=== PATIENT | female | born 1965 | race Caucasian/White ===

== ENCOUNTER 2018-08-28 14:56 | Emergency (ER) | payer SELFPAY, OTHER | END 2018-08-28 16:50 | disposition home or self-care (01) | LOC: JERFT 14:56 ==

== ENCOUNTER 2018-08-29 13:53 | Emergency (ER) | payer SELFPAY ==
[2018-08-29 14:47] VITALS: BP 137/74; PULSE 94; TEMP 98.8; BMI 25.7
--- NOTE | 2018-08-29 14:53 | PDOC ---
Rapid Medical Evaluation Chief Complaint: Sore Throat Time Seen by Provider: 08/29/18 14:43 Medical Evaluation: Allergies Allergy/AdvReac Type Severity Reaction Status Date / Time No Known Allergies Allergy Verified 08/28/18 15:00 08/29/18 14:46 I have performed a brief in-person evaluation of this patient. The patient presents with a chief complaint of: revisit, seen yesterday for sorethroat given pen vk im States not feeling better. Patient afebrile today Pertinent physical exam findings: gargled speech HEENT: pain with opening mouth, unable to assess pharynx even and unlabored breathing I have ordered the following: discussed with CESAR Leary who would like to reevaluate The patient will proceed to the ED for further evaluation.
[2018-08-29] MEDS ORDERED: SODIUM CHLORIDE 0.9% 500 ML INFUS.BAG IV ONE (15:41)
--- NOTE | 2018-08-29 15:41 | PDOC ---
History of Present Illness - General Chief Complaint: Sore Throat Stated Complaint: DIZZINESS Time Seen by Provider: 08/29/18 14:43 History Source: Patient, Family Exam Limitations: No Limitations - History of Present Illness Initial Comments: 08/29/18 16:09 Patient return to emergency department after being seen by myself yesterday and treated for strep pharyngeal infection. Given 1 dose of Bicillin LA 1.2 million units and Tylenol. Patient states returned home but was continued to be unable to swallow liquids and has progressive worsening, swelling, and pain to throat. Timing/Duration: getting worse Severity: moderate, severe Associated Symptoms: reports: fever/chills, loss of appetite, malaise, weakness Past History - Past Medical History Allergies/Adverse Reactions: Allergies Allergy/AdvReac Type Severity Reaction Status Date / Time No Known Allergies Allergy Verified 08/28/18 15:00 Home Medications: Ambulatory Orders Acetaminophen [Tylenol .Extra-Strength -] 1,000 mg PO Q12H 08/22/14 Aspirin [ASA -] 81 mg PO DAILY 08/22/14 Calcium Carbonate/Vitamin D3 [Calcium 500 + Vit D 200 Caplet] 1 each PO BID Clopidogrel Bisulfate [Plavix -] 75 mg PO DAILY 08/22/14 Docusate Sodium [Colace -] 100 mg PO TID 08/22/14 Hydrochlorothiazide [Hctz -] 25 mg PO DAILY 08/22/14 Meclizine HCl [Antivert -] 25 mg PO TID #21 tablet 08/22/14 Multivitamins [Multivit ([facility] Formulary)] 1 tab PO DAILY 08/22/14 [place]-3 Acid Ethyl Esters [Lovaza -] 2,000 mg PO BID 08/22/14 Omeprazole [Prilosec] 20 mg PO DAILY 08/22/14 Simvastatin [Zocor] 80 mg PO HS 08/22/14 metFORMIN HCL [Glucophage -] 500 mg PO BID 08/22/14 Acetaminophen Oral Solution [Tylenol 160mg/5mL Oral Solution -] 160 mg PO Q6H # 120 ml 08/29/18 Clindamycin [Cleocin -] 150 mg PO Q8H #21 capsule 08/29/18 Nystatin Oral Suspension - [Nystatin Oral Susp 207369 Units/5 ML -] 500,000 units PO Q6H 7 Days #100 cup 08/29/18 CVA: Yes COPD: No Diabetes: Yes HTN: Yes Hypercholesterolemia: Yes - Suicide/Smoking/Psychosocial Hx Smoking History: Never smoked Have you smoked in the past 12 months: No Information on smoking cessation initiated: No Hx Alcohol Use: No Drug/Substance Use Hx: No Substance Use Type: None Review of Systems - Review of Systems Able to Perform ROS?: Yes Is the patient limited Polish proficient: Yes Constitutional: Yes: Symptoms Reported, See HPI, Chills, Fever, Loss of Appetite (able to swallow fluids), Malaise HEENTM: Yes: Symptoms Reported, See HPI, Throat Pain, Throat Swelling, Difficulty Swallowing (patient unable to swallow secretions,) Respiratory: Yes: See HPI. No: Symptoms reported, Cough ABD/GI: Yes: Symptoms Reported Musculoskeletal: Yes: Symptoms Reported, See HPI, Muscle Weakness Integumentary: Yes: See HPI. No: Symptoms Reported, Bruising, Erythema Neurological: Yes: Symptoms reported, See HPI, Headache All Other Systems: Reviewed and Negative *Physical Exam - Vital Signs Last Vital Signs Temp Pulse Resp BP Pulse Ox 98.8 F 94 H 20 137/74 99 08/29/18 14:43 08/29/18 14:43 08/29/18 14:43 08/29/18 14:43 08/29/18 14:43 - Physical Exam General Appearance: Yes: Nourished, Appropriately Dressed, Apparent Distress, Moderate Distress, Severe Distress HEENT: positive: LUIZ, Normal ENT Inspection, Normal Voice, TMs Normal, Muffled/ Hoarse voice (hot potato voice), Pharyngeal Erythema (with deviated uvula towards the right, large peritonsillar abscess on the left side. patient has significant thrush coating surface of tongue). negative: Pharynx Normal Neck: positive: Tender, Supple, Lymphadenopathy (R), Lymphadenopathy (L) Respiratory/Chest: positive: Lungs Clear, Normal Breath Sounds Gastrointestinal/Abdominal: positive: Normal Bowel Sounds, Soft. negative: Tender Musculoskeletal: positive: Normal Inspection Extremity: positive: Normal Capillary Refill, Normal Inspection, Tender Integumentary: positive: Warm, Pale Neurologic: positive: clinical laboratory assistant II-XII NML intact, Fully Oriented, Alert, Normal Mood/ Affect, Normal Response, Motor Strength 5/5 Moderate Sedation - Procedure Monitoring Vital Signs: Procedure Monitoring Vital Signs Temperature 98.8 F 08/29/18 14:43 Pulse Rate 94 H 08/29/18 14:43 Respiratory Rate 20 08/29/18 14:43 Blood Pressure 137/74 08/29/18 14:43 O2 Sat by Pulse Oximetry (%) 99 08/29/18 14:43 ED Treatment Course - LABORATORY CBC & Chemistry Diagram: 08/29/18 16:00 08/29/18 16:00 Medical Decision Making - Medical Decision Making 08/29/18 18:[address] of neck, and reviewed with Dr. Salgado, radiologist. He reveals there is no significant abscess noted/peritonsillar abscess however visualizes significant swelling to paranasal pharyngeal spaces assisted with a significant streptococcal infection. Patient feels much improved after 1 L IV fluid, IV Tylenol, 10 mg of Decadron. We will treat thrush with nystatin swish and swallow, and given first dose of IV clindamycin 600 mg for continued treatment for streptococcal infection and sent prescription for clindamycin tablets 150 every 67 days. Encouraged family and patient to follow-up with PMD tomorrow. *DC/Admit/Observation/Transfer Diagnosis at time of Disposition: Thrush, oral Pharyngitis Qualifiers: Pharyngitis/tonsillitis etiology: streptococcus Qualified Code(s): J02.0 - Streptococcal pharyngitis - Discharge Dispostion Disposition: HOME Condition at time of disposition: Stable Decision to Admit order: No - Prescriptions Prescriptions: Acetaminophen Oral Solution [Tylenol 160mg/5mL Oral Solution -] 160 mg PO Q6H # 120 ml Clindamycin [Cleocin -] 150 mg PO Q8H #21 capsule Nystatin Oral Suspension - [Nystatin Oral Susp [id number] Units/5 ML -] 500,000 units PO Q6H 7 Days #100 cup - Referrals Referrals: Myrna Leach MD [Primary Care Provider] - - Patient Instructions Printed Discharge Instructions: DI for Strep Throat, DI for Thrush Additional Instructions: Rest, drink lots of fluids: Teas, water, soups Eat cold things: Ice cream, ice pops, ice chips Saltwater gargles Steamy showers/seem to face break up mucus Avoid contact with others until fevers and pain resolved Lots of handwashing and good hygiene, this is contagious You have been treated with 600 mg of clindamycin IV, 1 g of Tylenol via IV, 10 mg of Decadron the IV Clindamyosin tablets will continue 150 mg every 6 hours for the following week Tylenol or Motrin for fever and pain Followup with private physician in one to 2 days Return to emergency department for worsened symptoms, fevers, dehydration - Post Discharge Activity Forms/Work/School Notes: Back to Work
[2018-08-29] MEDS ORDERED: DEXAMETHASONE SOD PHOSPHATE 10 MG/1 ML VIAL IVPUSH ONE (15:42)
[2018-08-29] MEDS ORDERED: ACETAMINOPHEN 1000 MG/100 ML VIAL (NON FORMULARY) IVPB ONE (15:43)
[2018-08-29] MEDS ORDERED: DEXAMETHASONE SOD PHOSPHATE 10 MG/1 ML VIAL ONE (15:46)
[2018-08-29] MEDS ORDERED: ACETAMINOPHEN INJECTION 100 ML IVPB ONE (15:49)
[2018-08-29 16:15] LABS: BASO % 0.3 % (0-2.0); EOS % 0.5 % (0-4.5); HEMATOCRIT 42.8 % (32.4-45.2); HEMOGLOBIN 14.4 GM/dL (10.7-15.3); MCH 29.3 pg (25.7-33.7); MCHC 33.7 g/dl (32.0-36.0); MEAN CELL VOLUME 86.8 fl (80-96); MEAN PLT VOLUME 10.4 fl (7.5-11.1); NEUT % 82.2 % (42.8-82.8); PLATELET COUNT 150 K/MM3 (134-434); RBC 4.93 M/mm3 (3.60-5.2); RDW 15.7 % (11.6-15.6)
[2018-08-29 16:58] LABS: ALBUMIN 3.6 g/dl (3.4-5.0); ALK PHOS 126 U/L (45-117); ANION GAP 11 MMOL/L (8-16); BILIRUBIN,TOTAL 0.6 mg/dL (0.2-1); BLOOD UREA NITROGEN 29 mg/dL (7-18); CALCIUM 9.1 mg/dL (8.5-10.1); CHLORIDE 99 mmol/L (98-107); CO2 26 mmol/L (21-32); CREATININE 0.6 mg/dL (0.55-1.3); GLUCOSE,RANDOM 274 mg/dL (74-106); POTASSIUM 3.9 mmol/L (3.5-5.1); SGOT/AST 13 U/L (15-37); SGPT/ALT 45 U/L (13-61); SODIUM 137 mmol/L (136-145); TOT PROT 8.4 g/dl (6.4-8.2)
[2018-08-29] MEDS ORDERED: CLINDAMYCIN 600MG PREMIX IVPB 600 MG/50 ML BAG IVPB ONE (18:13)
== END 2018-08-29 19:00 | disposition home or self-care (01) ==
LOC: JERFT 13:53
PROC: 3E033NZ Introduction of Analgesics, Hypnotics, Sedatives into Peripheral Vein, Percutaneous Approach (ICD-10-PCS; principal; 2018-08-29)
PROC: 3E0333Z Introduction of Anti-inflammatory into Peripheral Vein, Percutaneous Approach (ICD-10-PCS; 2018-08-29)
DX: J02.0 Streptococcal pharyngitis (principal); B95.0 Streptococcus, group A, as the cause of diseases classified elsewhere; B37.0 Candidal stomatitis; I10 Essential (primary) hypertension; E78.00 Pure hypercholesterolemia, unspecified; E11.9 Type 2 diabetes mellitus without complications; Z79.84 Long term (current) use of oral hypoglycemic drugs; Z86.73 Personal history of transient ischemic attack (TIA), and cerebral infarction without residual deficits
CPT/HCPCS: 36415; 70491-TC; 80053; 85025; 87804; 87880; 99281-25; J0131; J1100

== ENCOUNTER 2018-09-01 13:20 | Emergency (ER) | payer SELFPAY ==
[2018-09-01 13:40] VITALS: BMI 22.3
--- NOTE | 2018-09-01 15:06 | PDOC ---
History of Present Illness - General Chief Complaint: Sore Throat Stated Complaint: DIFFICULT BREATH Time Seen by Provider: 09/01/18 14:12 Past History - Past Medical History Allergies/Adverse Reactions: Allergies Allergy/AdvReac Type Severity Reaction Status Date / Time No Known Allergies Allergy Verified 08/28/18 15:00 Home Medications: Ambulatory Orders Acetaminophen [Tylenol .Extra-Strength -] 1,000 mg PO Q12H 08/22/14 Aspirin [ASA -] 81 mg PO DAILY 08/22/14 Calcium Carbonate/Vitamin D3 [Calcium 500 + Vit D 200 Caplet] 1 each PO BID Clopidogrel Bisulfate [Plavix -] 75 mg PO DAILY 08/22/14 Docusate Sodium [Colace -] 100 mg PO TID 08/22/14 Hydrochlorothiazide [Hctz -] 25 mg PO DAILY 08/22/14 Meclizine HCl [Antivert -] 25 mg PO TID #21 tablet 08/22/14 Multivitamins [Multivit ([facility] Formul[facility])] 1 tab PO DAILY 08/22/14 [place]-3 Acid Ethyl Esters [Lovaza -] 2,000 mg PO BID 08/22/14 Omeprazole [Prilosec] 20 mg PO DAILY 08/22/14 Simvastatin [Zocor] 80 mg PO HS 08/22/14 metFORMIN HCL [Glucophage -] 500 mg PO BID 08/22/14 Acetaminophen Oral Solution [Tylenol 160mg/5mL Oral Solution -] 160 mg PO Q6H # 120 ml 08/29/18 Clindamycin [Cleocin -] 150 mg PO Q8H #21 capsule 08/29/18 Nystatin Oral Suspension - [Nystatin Oral Susp [id number] Units/5 ML -] 500,000 units PO Q6H 7 Days #100 cup 08/29/18 CVA: Yes COPD: No Diabetes: Yes HTN: Yes Hypercholesterolemia: Yes - Suicide/Smoking/Psychosocial Hx Smoking History: Never smoked Have you smoked in the past 12 months: No Information on smoking cessation initiated: No Hx Alcohol Use: No Drug/Substance Use Hx: No Substance Use Type: None *Physical Exam - Vital Signs Last Vital Signs Temp Pulse Resp BP Pulse Ox 98.9 F 95 H 20 112/64 100 09/01/18 13:37 09/01/18 13:37 09/01/18 13:37 09/01/18 13:37 09/01/18 13:37 Moderate Sedation - Procedure Monitoring Vital Signs: Procedure Monitoring Vital Signs Temperature 98.9 F 09/01/18 13:37 Pulse Rate 95 H 09/01/18 13:37 Respiratory Rate 20 09/01/18 13:37 Blood Pressure 112/64 09/01/18 13:37 O2 Sat by Pulse Oximetry (%) 100 09/01/18 13:37
[2018-09-01] MEDS ORDERED: SODIUM CHLORIDE 1,000 ML IV STA (15:44)
[2018-09-01] MEDS ORDERED: DEXAMETHASONE SOD PHOSPHATE 10 MG/1 ML VIAL IVPUSH ONE (15:45)
[2018-09-01] MEDS ORDERED: AMPICILLIN NA/SULBACTAM NA 3 GM in SODIUM CHLORIDE 100 ML IVPB ONE (15:47)
[2018-09-01] MEDS ORDERED: ACETAMINOPHEN 1000 MG/100 ML VIAL (NON FORMULARY) IVPB ONE (15:51)
[2018-09-01] MEDS ORDERED: DEXAMETHASONE SOD PHOSPHATE 10 MG/1 ML VIAL ONE (16:57)
[2018-09-01] MEDS ORDERED: ACETAMINOPHEN INJECTION 100 ML IVPB ONE (16:57)
[2018-09-01 17:06] LABS: VENOUS PC02 39.7 mmHg (38-52); VENOUS PH 7.44 (7.32-7.42); VENOUS PO2 59.7 mmHg (28-48)
[2018-09-01 17:07] LABS: BASO % 1.2 % (0-2.0); EOS % 0.4 % (0-4.5); HEMATOCRIT 42.1 % (32.4-45.2); HEMOGLOBIN 14.4 GM/dL (10.7-15.3); LYMPH % 17.2 % (8-40); MCH 29.2 pg (25.7-33.7); MCHC 34.1 g/dl (32.0-36.0); MEAN CELL VOLUME 85.8 fl (80-96); MEAN PLT VOLUME 9.8 fl (7.5-11.1); MONO % 7.4 % (3.8-10.2); NEUT % 73.8 % (42.8-82.8); PLATELET COUNT 179 K/MM3 (134-434); RBC 4.91 M/mm3 (3.60-5.2); RDW 15.1 % (11.6-15.6); WHITE BLOOD COUNT 13.5 K/mm3 (4.0-10.0)
--- NOTE | 2018-09-01 17:14 | PDOC ---
*Physical Exam - Vital Signs Last Vital Signs Temp Pulse Resp BP Pulse Ox 98.9 F 95 H 20 112/64 100 09/01/18 13:37 09/01/18 13:37 09/01/18 13:37 09/01/18 13:37 09/01/18 13:37 ED Treatment Course - LABORATORY CBC & Chemistry Diagram: 09/01/18 16:21 09/01/18 16:21 - ADDITIONAL ORDERS Additional order review: Laboratory Results 09/01/18 16:21 VBG pH 7.44 H POC VBG pCO2 39.7 POC VBG pO2 59.7 H Mixed VBG HCO3 26.3 H 09/01/18 16:21 RBC 4.91 MCV 85.8 MCHC 34.1 RDW 15.1 MPV 9.8 Neutrophils % 73.8 Lymphocytes % 17.2 D Monocytes % 7.4 Eosinophils % 0.4 Basophils % 1.2 D - Medications Given in the ED: ED Medications Discontinued Medications Generic Name Dose Route Start Last Admin Trade Name Arron PRN Reason Stop Dose Admin Acetaminophen 1,000 mg 09/01/18 15:51 09/01/18 17:01 Ofirmev Injection - IVPB 09/01/18 15:52 1,000 mg ONCE ONE Administration Dexamethasone Sodium Phosphate 10 mg 09/01/18 15:45 09/01/18 17:08 Decadron Injection - IVPUSH 09/01/18 15:46 10 mg ONCE ONE Administration Sodium Chloride 1,000 mls @ 1,000 mls/hr 09/01/18 15:44 09/01/18 17:08 Normal Saline - IV 09/01/18 16:43 1,000 mls/hr ASDIR STA Administration Medical Decision Making - Medical Decision Making 09/01/18 17:13 53 yo F presenting to the ER with a complaint of severe throat pain Pt was seen in the ER on 08/28, 08/29 due to sore throat Dx with Strep Pharyngitis, given Bicillin Pt returned due to severe pain, given IVF, Clindamycin Pt returns today with drooling, vocal changes 09/01/18 17:15 09/01/18 17:16 Laboratory Tests 09/01/18 16:21 WBC 13.5 H Hgb 14.4 Hct 42.1 Plt Count 179 09/01/18 17:[address] Received Unasyn and Decadron Will admit to the Hospitalist Service ENT consult
[2018-09-01 17:21] LABS: INR 1.13 (0.83-1.09); PROTHROMBIN TIME (PATIENT) 13.3 SEC (9.7-13.0)
[2018-09-01 17:24] LABS: ACTIVATED PTT 26.3 SECONDS (25.2-36.5)
--- NOTE | 2018-09-01 17:28 | PDOC ---
History of Present Illness - General Chief Complaint: Sore Throat Stated Complaint: DIFFICULT BREATH Time Seen by Provider: 09/01/18 14:12 History Source: Patient Exam Limitations: No Limitations - History of Present Illness Initial Comments: 09/01/18 17:01 53-year-old female presents to ED with complaints of worsening throat pain difficulty swallowing, and chills. Patient was seen here twice in the past week and placed on clindamycin 3 days ago. Patient states also had a CAT scan done and was given steroids. Patient denies difficulty breathing vomiting, headache, or dizziness. Patient with history of diabetes and states her glucose was almost 300 this morning Timing/Duration: getting worse Severity: moderate Associated Symptoms: reports: fever/chills. denies: shortness of breath Past History - Travel Traveled outside of the country in the last 30 days: No - Past Medical History Allergies/Adverse Reactions: Allergies Allergy/AdvReac Type Severity Reaction Status Date / Time No Known Allergies Allergy Verified 08/28/18 15:00 Home Medications: Ambulatory Orders Acetaminophen [Tylenol .Extra-Strength -] 1,000 mg PO Q12H 08/22/14 Aspirin [ASA -] 81 mg PO DAILY 08/22/14 Calcium Carbonate/Vitamin D3 [Calcium 500 + Vit D 200 Caplet] 1 each PO BID Clopidogrel Bisulfate [Plavix -] 75 mg PO DAILY 08/22/14 Docusate Sodium [Colace -] 100 mg PO TID 08/22/14 Hydrochlorothiazide [Hctz -] 25 mg PO DAILY 08/22/14 Meclizine HCl [Antivert -] 25 mg PO TID #21 tablet 08/22/14 Multivitamins [Multivit ([facility] Formul[facility])] 1 tab PO DAILY 08/22/14 [place]-3 Acid Ethyl Esters [Lovaza -] 2,000 mg PO BID 08/22/14 Omeprazole [Prilosec] 20 mg PO DAILY 08/22/14 Simvastatin [Zocor] 80 mg PO HS 08/22/14 metFORMIN HCL [Glucophage -] 500 mg PO BID 08/22/14 Acetaminophen Oral Solution [Tylenol 160mg/5mL Oral Solution -] 160 mg PO Q6H # 120 ml 08/29/18 Clindamycin [Cleocin -] 150 mg PO Q8H #21 capsule 08/29/18 Nystatin Oral Suspension - [Nystatin Oral Susp [id number] Units/5 ML -] 500,000 units PO Q6H 7 Days #100 cup 08/29/18 CVA: Yes COPD: No Diabetes: Yes HTN: Yes Hypercholesterolemia: Yes - Suicide/Smoking/Psychosocial Hx Smoking History: Never smoked Have you smoked in the past 12 months: No Information on smoking cessation initiated: No Hx Alcohol Use: No Drug/Substance Use Hx: No Substance Use Type: None Patient Lives Alone: No Review of Systems - Review of Systems Able to Perform ROS?: No Constitutional: Yes: Chills HEENTM: Yes: Throat Pain, Throat Swelling, Difficulty Swallowing Respiratory: No: Symptoms reported Cardiac (ROS): No: Symptoms Reported ABD/GI: No: Symptoms Reported Musculoskeletal: No: Symptoms Reported Integumentary: No: Symptoms Reported Neurological: No: Symptoms reported Endocrine: No: Symptoms Reported Hematologic/Lymphatic: No: Symptoms Reported *Physical Exam - Vital Signs Last Vital Signs Temp Pulse Resp BP Pulse Ox 98.9 F 95 H 20 112/64 100 09/01/18 13:37 09/01/18 13:37 09/01/18 13:37 09/01/18 13:37 09/01/18 13:37 - Physical Exam General Appearance: Yes: Nourished, Appropriately Dressed, Mild Distress HEENT: positive: EOMI, LUIZ, TMs Normal, Muffled/Hoarse voice (hot potato voice , Unable to visualize tonsils or posterior Andres X secondary to patient unable to open her mouth for visualization. Soft palate pink teeth intact, no halitosis ), Excessive drooling Neck: positive: Normal Thyroid, Supple, Lymphadenopathy (R) (submental submandibular and upper cervical) Respiratory/Chest: positive: Lungs Clear, Normal Breath Sounds. negative: Respiratory Distress, Accessory Muscle Use Cardiovascular: positive: Regular Rhythm, Regular Rate. negative: Murmur Gastrointestinal/Abdominal: positive: Soft. negative: Tenderness Integumentary: positive: Normal Color, Warm, Moist Neurologic: positive: Motor Strength 5/5 (ambulatory) Moderate Sedation - Procedure Monitoring Vital Signs: Procedure Monitoring Vital Signs Temperature 98.9 F 09/01/18 13:37 Pulse Rate 95 H 09/01/18 13:37 Respiratory Rate 20 09/01/18 13:37 Blood Pressure 112/64 09/01/18 13:37 O2 Sat by Pulse Oximetry (%) 100 09/01/18 13:37 ED Treatment Course - LABORATORY CBC & Chemistry Diagram: 09/01/18 16:21 09/01/18 16:21 - ADDITIONAL ORDERS Additional order review: Laboratory Results 09/01/18 09/01/18 16:21 16:21 PT with INR 13.30 H INR 1.13 H VBG pH 7.44 H POC VBG pCO2 39.7 POC VBG pO2 59.7 H Mixed VBG HCO3 26.3 H 09/01/18 16:21 RBC 4.91 MCV 85.8 MCHC 34.1 RDW 15.1 MPV 9.8 Neutrophils % 73.8 Lymphocytes % 17.2 D Monocytes % 7.4 Eosinophils % 0.4 Basophils % 1.2 D - RADIOLOGY Radiology Studies Ordered: Category Date Time Status SOFT TISSUE NECK CT WITH CONTR [CT] Stat CT Scan 09/01/18 16:02 Ordered CHEST X-RAY PORTABLE* [RAD] Stat Radiology 09/01/18 15:42 Completed - Medications Given in the ED: ED Medications Discontinued Medications Generic Name Dose Route Start Last Admin Trade Name Freq PRN Reason Stop Dose Admin Acetaminophen 1,000 mg 09/01/18 15:51 09/01/18 17:01 Ofirmev Injection - IVPB 09/01/18 15:52 1,000 mg ONCE ONE Administration Dexamethasone Sodium Phosphate 10 mg 09/01/18 15:45 09/01/18 17:08 Decadron Injection - IVPUSH 09/01/18 15:46 10 mg ONCE ONE Administration Sodium Chloride 1,000 mls @ 1,000 mls/hr 09/01/18 15:44 09/01/18 17:08 Normal Saline - IV 09/01/18 16:43 1,000 mls/hr ASDIR STA Administration Medical Decision Making - Medical Decision Making 09/01/18 17:01 Chief complaint : Worsening throat pain swallowing and difficulty tolerating liquids. Patient on clindamycin 2 days. Patient with diagnosis of strep and had a CT with contrast done on the fourth CT shows interval development of concentric soft tissue thickening seen at the level of oropharynx and lower nasopharynx with resultant airway narrowing probably at the base of inflammation versus infection. Swelling of the palantine tonsils is also noted. Exam: Noted drooling, hot potato voice and inability to open her mouth secondary to discomfort and swelling. Plan: Labs, IV fluids, Decadron UniSyn IV Tylenol consult to ENT along with repeating soft tissue of the neck with contrast 09/01/18 17:33 Laboratory Tests 09/01/18 09/01/18 09/01/18 16:21 16:21 16:21 WBC 13.5 H Hgb 14.4 Hct 42.1 MCV 85.8 Absolute Neuts (auto) 9.9 H PT with INR 13.30 H INR 1.13 H PTT (Actin FS) 26.3 VBG pH 7.44 H POC VBG pCO2 39.7 POC VBG pO2 59.7 H Mixed VBG HCO3 26.3 H Sodium Potassium Chloride Carbon Dioxide Anion Gap BUN Creatinine Creat Clearance w eGFR Random Glucose Lactic Acid Calcium Total Bilirubin AST ALT Alkaline Phosphatase Total Protein Albumin Blood Type Antibody Screen 09/01/18 09/01/18 09/01/18 16:21 16:21 16:21 WBC Hgb Hct MCV Absolute Neuts (auto) PT with INR INR PTT (Actin FS) VBG pH POC VBG pCO2 POC VBG pO2 Mixed VBG HCO3 Sodium 136 Potassium 3.7 Chloride 100 Carbon Dioxide 27 Anion Gap 9 BUN 21 H Creatinine 0.6 Creat Clearance w eGFR Pending Random Glucose 317 H* Lactic Acid 0.9 Calcium 9.2 Total Bilirubin 0.7 AST 10 L ALT 27 Alkaline Phosphatase 106 Total Protein 8.0 Albumin 3.4 Blood Type Pending Antibody Screen Pending X-ray shows no acute findings. Case discussed with ENT Dr. Shah who will review CAT scan once completed. Case also discussed with hospitalist but will wait for CT to complete admission 09/01/18 18:54 CT of the soft tissue shows interval development of a 1.4 x 1 70 right peritonsillar abscess. There is also 1.3 x 1 cm fluid collection somewhat more laterally abutting the medial border of the right medial muscle suggestive of an additional abscess. Evaluation of this region is somewhat difficult on the study due to dental artifact. Increased inflammatory soft tissue changes are noted. Bilateral cervical lymphadenopathy is noted without interval change. Possible minimal to mild thyromegaly. Patient states continues to feel improvement. Patient ordered for TSH 09/01/18 19:05 Spoke to ENT doctor sukhdev and states he is not director of promotions for the emergency room and this patient requires drainage he also states there is concern for additional abscess which needs addressing. Case discussed with hospitalist and will cancel admission and pt will require transfer to a tertiary center. *DC/Admit/Observation/Transfer Diagnosis at time of Disposition: Sepsis, Peritonsillar abscess - Discharge Dispostion Decision to Admit order: Yes - Referrals - Patient Instructions - Post Discharge Activity
[2018-09-01 17:45] LABS: ALBUMIN 3.4 g/dl (3.4-5.0); ALK PHOS 106 U/L (45-117); ANION GAP 9 MMOL/L (8-16); BILIRUBIN,TOTAL 0.7 mg/dL (0.2-1); BLOOD UREA NITROGEN 21 mg/dL (7-18); CALCIUM 9.2 mg/dL (8.5-10.1); CHLORIDE 100 mmol/L (98-107); CO2 27 mmol/L (21-32); CREATININE 0.6 mg/dL (0.55-1.3); POTASSIUM 3.7 mmol/L (3.5-5.1); SGOT/AST 10 U/L (15-37); SGPT/ALT 27 U/L (13-61); SODIUM 136 mmol/L (136-145)
[2018-09-01 17:47] LABS: GLUCOSE,RANDOM 317 mg/dL (74-106)
--- NOTE | 2018-09-01 19:49 | PDOC ---
*Physical Exam - Vital Signs Last Vital Signs Temp Pulse Resp BP Pulse Ox 98.9 F 95 H 20 112/64 100 09/01/18 13:37 09/01/18 13:37 09/01/18 13:37 09/01/18 13:37 09/01/18 13:37 ED Treatment Course - LABORATORY CBC & Chemistry Diagram: 09/01/18 16:21 09/01/18 16:21 - ADDITIONAL ORDERS Additional order review: Laboratory Results 09/01/18 09/01/18 09/01/18 16:21 16:21 16:21 PT with INR INR PTT (Actin FS) VBG pH POC VBG pCO2 POC VBG pO2 Mixed VBG HCO3 Sodium 136 Potassium 3.7 Chloride 100 Carbon Dioxide 27 Anion Gap 9 BUN 21 H Creatinine 0.6 Creat Clearance w eGFR > 60 Random Glucose 317 H* Lactic Acid 0.9 Calcium 9.2 Total Bilirubin 0.7 AST 10 L ALT 27 Alkaline Phosphatase 106 Total Protein 8.0 Albumin 3.4 Blood Type A POSITIVE Antibody Screen Negative 09/01/18 09/01/18 16:21 16:21 PT with INR 13.30 H INR 1.13 H PTT (Actin FS) 26.3 VBG pH 7.44 H POC VBG pCO2 39.7 POC VBG pO2 59.7 H Mixed VBG HCO3 26.3 H Sodium Potassium Chloride Carbon Dioxide Anion Gap BUN Creatinine Creat Clearance w eGFR Random Glucose Lactic Acid Calcium Total Bilirubin AST ALT Alkaline Phosphatase Total Protein Albumin Blood Type Antibody Screen 09/01/18 16:21 RBC 4.91 MCV 85.8 MCHC 34.1 RDW 15.1 MPV 9.8 Neutrophils % 73.8 Lymphocytes % 17.2 D Monocytes % 7.4 Eosinophils % 0.4 Basophils % 1.2 D - Medications Given in the ED: ED Medications Discontinued Medications Generic Name Dose Route Start Last Admin Trade Name Freq PRN Reason Stop Dose Admin Acetaminophen 1,000 mg 09/01/18 15:51 09/01/18 17:01 Ofirmev Injection - IVPB 09/01/18 15:52 1,000 mg ONCE ONE Administration Dexamethasone Sodium Phosphate 10 mg 09/01/18 15:45 09/01/18 17:08 Decadron Injection - IVPUSH 09/01/18 15:46 10 mg ONCE ONE Administration Sodium Chloride 1,000 mls @ 1,000 mls/hr 09/01/18 15:44 09/01/18 17:08 Normal Saline - IV 09/01/18 16:43 1,000 mls/hr ASDIR STA Administration Ampicillin Sodium/Sulbactam 100 mls @ 200 mls/hr 09/01/18 15:47 09/01/18 19: 39 Sodium 3 gm/ Sodium Chloride IVPB 09/01/18 16:16 200 mls/hr ONCE ONE Administration Medical Decision Making - Medical Decision Making Patient signed out to me by MANIPULATIVE THERAPY SPECIALIST Madelin Patient currently resting in NAD, air way intact; she feels slightly better after meds given Patient accepted for transfer at [facility] Discussed case with ENT Dr. Harris Accepting ED physician: Dr. Candelaria Vallejo 09/01/18 19:49 *DC/Admit/Observation/Transfer Diagnosis at time of Disposition: Peritonsillar abscess - Discharge Dispostion Disposition: TRANSFER ACUTE CARE/OTHER HOSP Condition at time of disposition: Stable Decision to Admit order: No - Referrals - Patient Instructions - Post Discharge Activity - Transfer to Acute Care Facility Receiving Facility: [facility].
[2018-09-01 20:23] VITALS: BP 125/70; PULSE 88; TEMP 98.8
--- NOTE | 2018-09-02 13:18 | EKG ---
Test Reason : Blood Pressure : / mmHG Vent. Rate : 093 BPM Atrial Rate : 093 BPM P-R Int : 136 ms QRS Dur : 096 ms QT Int : 348 ms P-R-T Axes : 042 021 017 degrees QTc Int : 432 ms NORMAL SINUS RHYTHM POSSIBLE LEFT ATRIAL ENLARGEMENT POSSIBLE ANTERIOR INFARCT , AGE UNDETERMINED ABNORMAL ECG WHEN COMPARED WITH ECG OF 22-AUG-2014 16:45, NO SIGNIFICANT CHANGE WAS FOUND Confirmed by JOBY TALAVERA, ANGELY ([id number]) on 09/02/2018 1:18:34 PM Referred By: Confirmed By:ANGELY HEMPHILL MD
== END 2018-09-01 20:25 | disposition short-term general hospital (02) ==
LOC: JERFT 13:20 → JER 13:20
PROC: 3E03329 Introduction of Other Anti-infective into Peripheral Vein, Percutaneous Approach (ICD-10-PCS; principal; 2018-09-01)
PROC: 3E033NZ Introduction of Analgesics, Hypnotics, Sedatives into Peripheral Vein, Percutaneous Approach (ICD-10-PCS; 2018-09-01)
PROC: 3E0333Z Introduction of Anti-inflammatory into Peripheral Vein, Percutaneous Approach (ICD-10-PCS; 2018-09-01)
DX: J36 Peritonsillar abscess (principal); A41.9 Sepsis, unspecified organism; I10 Essential (primary) hypertension; E78.00 Pure hypercholesterolemia, unspecified; E11.65 Type 2 diabetes mellitus with hyperglycemia; Z79.84 Long term (current) use of oral hypoglycemic drugs; Z86.73 Personal history of transient ischemic attack (TIA), and cerebral infarction without residual deficits
CPT/HCPCS: 36415; 70491-TC; 71045-TC-FY; 80053; 82803; 83605; 84443; 84484; 85025; 85610; 85730; 86850; 86900; 86901; 87040; 93005; 93010; 99284-25; J0131; J1100; J7030

== ENCOUNTER 2021-06-23 16:14 | Emergency (ER) | payer OTHER ==
[2021-06-23 16:55] VITALS: BP 116/76; PULSE 75; TEMP 97.8; BMI 27.4
[2021-06-23 18:30] LABS: BASO % 0.8 % (0-2.0); EOS % 2.8 % (0-4.5); HEMATOCRIT 37.5 % (32.4-45.2); HEMOGLOBIN 12.6 GM/dL (10.7-15.3); LYMPH % 32.2 % (8-40); MCH 25.5 pg (25.7-33.7); MCHC 33.5 g/dl (32.0-36.0); MEAN CELL VOLUME 76.1 fl (80-96); MEAN PLT VOLUME 8.8 fl (7.5-11.1); MONO % 6.3 % (3.8-10.2); NEUT % 57.9 % (42.8-82.8); PLATELET COUNT 279 10^3/uL (134-434); RBC 4.93 M/mm3 (3.60-5.2); RDW 17.3 % (11.6-15.6); WHITE BLOOD COUNT 7.6 K/mm3 (4.0-10.0)
[2021-06-23 18:37] LABS: INR 0.96 (0.83-1.09); PROTHROMBIN TIME (PATIENT) 10.7 SEC (9.7-13.0)
[2021-06-23 18:40] LABS: ACTIVATED PTT 29.1 SECONDS (25.2-36.5)
[2021-06-23 19:13] LABS: ALBUMIN 3.6 g/dl (3.4-5.0); BLOOD UREA NITROGEN 14.4 mg/dL (7-18); CALCIUM 9.8 mg/dL (8.5-10.1)
[2021-06-23 19:16] LABS: CREATININE 0.6 mg/dL (0.55-1.3)
[2021-06-23 19:18] LABS: BILIRUBIN,TOTAL 0.3 mg/dL (0.2-1); TOT PROT 7.8 g/dl (6.4-8.2)
[2021-06-23 19:30] LABS: ERYTHROCYTE SEDIMENTATION RATE 18 mm/hr (0-30)
== END 2021-06-23 19:35 | disposition home or self-care (01) ==
LOC: JER 16:14
DX: G43.909 Migraine, unspecified, not intractable, without status migrainosus (principal)
CPT/HCPCS: 36415; 70450-TC; 80053; 85025; 85610; 85651; 85730; 93005; 93010; 99285-25

== ENCOUNTER 2022-06-17 19:47 | Emergency (ER) | payer OTHER ==
[2022-06-17 20:22] VITALS: BP 135/72; PULSE 108; RESP 20; TEMP 100.4; BMI 28.7
[2022-06-17] MEDS ORDERED: KETOROLAC TROMETHAMINE 30 MG/1 ML VIAL IVPUSH ONE (21:33)
[2022-06-17] MEDS ORDERED: DEXAMETHASONE SOD PHOSPHATE 10 MG/1 ML VIAL IVPUSH ONE (21:33)
[2022-06-17] MEDS ORDERED: SODIUM CHLORIDE 0.9% 500 ML INFUS.BAG IV ONE (21:34)
[2022-06-17] MEDS ORDERED: DEXAMETHASONE SOD PHOSPHATE 10 MG/1 ML VIAL ONE (21:46)
[2022-06-17] MEDS ORDERED: KETOROLAC TROMETHAMINE 30 MG/1 ML VIAL ONE (21:46)
[2022-06-17 22:06] LABS: BASO % 0.4 % (0-2.0); EOS % 0.2 % (0-4.5); HEMATOCRIT 40.6 % (32.4-45.2); HEMOGLOBIN 13.3 GM/dL (10.7-15.3); MCH 25.9 pg (25.7-33.7); MCHC 32.7 g/dl (32.0-36.0); MEAN CELL VOLUME 79.4 fl (80-96); MEAN PLT VOLUME 8.9 fl (7.5-11.1); MONO % 6.4 % (3.8-10.2); PLATELET COUNT 231 10^3/uL (134-434); RBC 5.12 M/mm3 (3.60-5.2); WHITE BLOOD COUNT 13.5 K/mm3 (4.0-10.0)
[2022-06-17 22:11] LABS: CHLORIDE 103 mmol/L (98-107); SODIUM 135 mmol/L (136-145)
[2022-06-17 22:13] LABS: ALBUMIN 3.5 g/dl (3.4-5.0); CALCIUM 9.7 mg/dL (8.5-10.1); CO2 25 mmol/L (21-32)
[2022-06-17 22:14] LABS: BLOOD UREA NITROGEN 22.6 mg/dL (7-18); GLUCOSE,RANDOM 188 mg/dL (74-106)
[2022-06-17 22:17] LABS: CREATININE 0.7 mg/dL (0.55-1.3); SGOT/AST 62 U/L (15-37); SGPT/ALT 33 U/L (13-61)
[2022-06-17 22:18] LABS: BILIRUBIN,TOTAL 0.8 mg/dL (0.2-1); TOT PROT 8.7 g/dl (6.4-8.2)
[2022-06-17 22:19] LABS: ALK PHOS 87 U/L (45-117)
[2022-06-17 22:43] LABS: ANION GAP 7 MMOL/L (8-16)
[2022-06-17] MEDS ORDERED: CLINDAMYCIN 600MG PREMIX IVPB 600 MG/50 ML BAG IVPB ONE ×2 (23:26→23:31)
[2022-06-18 00:08] LABS: CALCIUM 8.9 mg/dL (8.5-10.1)
[2022-06-18 00:09] LABS: BLOOD UREA NITROGEN 22.3 mg/dL (7-18)
[2022-06-18 00:12] LABS: CREATININE 0.6 mg/dL (0.55-1.3)
== END 2022-06-18 01:52 | disposition home or self-care (01) ==
LOC: JER 19:47
PROC: 3E03329 Introduction of Other Anti-infective into Peripheral Vein, Percutaneous Approach (ICD-10-PCS; principal; 2022-06-17)
PROC: 3E033GC Introduction of Other Therapeutic Substance into Peripheral Vein, Percutaneous Approach (ICD-10-PCS; 2022-06-17)
PROC: 3E033GC Introduction of Other Therapeutic Substance into Peripheral Vein, Percutaneous Approach (ICD-10-PCS; 2022-06-17)
DX: R50.9 Fever, unspecified (principal); J02.9 Acute pharyngitis, unspecified
CPT/HCPCS: 0241U-QW; 36415; 70491-TC; 80048; 80053; 85025; 87651; 96374; 96375; 99285-25; J1100